=== PATIENT | female | born 1990 | race Caucasian/White ===

== ENCOUNTER 2016-11-10 12:20 | Emergency (ER) | payer MEDICAID ==
[~2016-11-10] VITALS: Ht 162.6 cm; Wt 82.0 kg
[~2016-11-10 12:20] MED LIST: ADVIL
[2016-11-10 12:26] VITALS: BP 116/65
== END 2016-11-10 14:52 | disposition left against medical advice (07) ==
LOC: ER 12:21
DX: M54.9 Dorsalgia, unspecified (principal); Z53.21 Procedure and treatment not carried out due to patient leaving prior to being seen by health care provider

== ENCOUNTER 2019-05-19 07:59 | Emergency (ER) | payer MEDICAID ==
[~2019-05-19] VITALS: Ht 157.5 cm; Wt 87.0 kg
[2019-05-19] MEDS ORDERED: ACETAMINOPHEN 325MG TABLET PO PRN (08:45)
[2019-05-19 09:04] LABS: BASOPHILS % 0.9 % (0.0-2.0); EOSINOPHILS % 2.5 % (0.0-5.0); HEMATOCRIT. 43.8 % (36.0-48.0); HEMOGLOBIN. 14.8 g/dL (12.0-16.0); LYMPHOCYTES % 33.8 % (20.0-50.0); MEAN CORPUSCULAR HEMOGLOBIN 28.6 pg (28.0-32.0); MEAN CORPUSCULAR VOLUME 84.5 fL (81.0-99.0); MEAN PLATELET VOLUME 8.4 fl (7.4-10.4); MONOCYTES % 6.5 % (2.0-8.0); NEUTROPHILS % 56.3 % (40.0-76.0); PLATELET 248 x1000/uL (130-400); RED BLOOD CELL COUNT 5.18 mill/uL (4.2-5.4); RED CELL DISTRIBUTION WIDTH 12.9 % (11.6-14.6)
[2019-05-19 09:11] LABS: CHLORIDE 107 mEq/L (98-107)
[2019-05-19 09:22] LABS: B-HCG QUANTITATIVE < 1 mIU/mL (<3)
[2019-05-19 10:34] LABS: CLARITY URINE CLEAR (CLEAR); COLOR URINE YELLOW (YELLOW); KETONES URINE NEGATIVE (NEGATIVE); LEUKOCYTE ESTERASE URINE 1+ (NEGATIVE); NITRITE URINE NEGATIVE (NEGATIVE); OCCULT BLOOD URINE NEGATIVE (NEGATIVE); PH URINE 5.5 (4.5-8.0); PROTEIN URINE NEGATIVE (NEGATIVE); SPECIFIC GRAVITY URINE 1.014 (1.005-1.030); UROBILINOGEN URINE 0.2 E.U./dL (0.2-1.0)
[2019-05-19 10:50] VITALS: BP 116/65
== END 2019-05-19 12:01 | disposition home or self-care (01) ==
LOC: ER 08:08
DX: N91.2 Amenorrhea, unspecified (principal); R10.30 Lower abdominal pain, unspecified
CPT/HCPCS: 36415; 71045; 76830; 76856; 81003; 81025; 84702; 93005; 99284

== ENCOUNTER 2020-08-30 03:41 | Emergency (ER) | payer MEDICAID ==
[~2020-08-30] VITALS: Ht 165.1 cm; Wt 90.0 kg
[2020-08-30] MEDS ORDERED: KETOROLAC 60MG/2ML VIAL IM STA (05:23)
[2020-08-30 05:38] VITALS: BP 128/73
== END 2020-08-30 07:11 | disposition home or self-care (01) ==
LOC: ER 03:54
DX: M54.6 Pain in thoracic spine (principal); R05 Cough; M79.10 Myalgia, unspecified site
CPT/HCPCS: 71045; 93005; 96372; 99283; J1885

== ENCOUNTER 2021-03-16 01:21 | Emergency (ER) | payer MEDICAID ==
[~2021-03-16] VITALS: Ht 157.5 cm; Wt 97.0 kg
[2021-03-16] MEDS ORDERED: PREDNISONE 20MG TABLET PO STA (04:18)
[2021-03-16] MEDS ORDERED: IPRATROPIUM BROMIDE (0.02%) 0.5MG/2.5ML NEB HHN STA (04:18)
[2021-03-16] MEDS ORDERED: ALBUTEROL (0.083%) 2.5MG/3ML NEB HHN STA (04:18)
[2021-03-16 04:48] LABS: EOSINOPHILS % 12.2 % (0.0-5.0); HEMATOCRIT. 39.5 % (36.0-48.0); HEMOGLOBIN. 13.5 g/dL (12.0-16.0); LYMPHOCYTES % 34.9 % (20.0-50.0); MEAN CORPUSCULAR HEMOGLOBIN 28.5 pg (28.0-32.0); MEAN CORPUSCULAR VOLUME 83.3 fL (81.0-99.0); MEAN PLATELET VOLUME 8.5 fl (7.4-10.4); MONOCYTES % 6.9 % (2.0-8.0); PLATELET 234 x1000/uL (130-400); RED BLOOD CELL COUNT 4.75 mill/uL (4.2-5.4); RED CELL DISTRIBUTION WIDTH 12.5 % (11.6-14.6)
[2021-03-16 04:50] LABS: CHLORIDE 107 mEq/L (98-107)
[2021-03-16] MEDS ORDERED: AMOX-494 MT (06:34)
[2021-03-16] MEDS ORDERED: PRED10TA23 MT (06:34)
[2021-03-16 07:50] VITALS: BP 136/58
== END 2021-03-16 10:36 | disposition home or self-care (01) ==
LOC: ER 01:21
DX: J40 Bronchitis, not specified as acute or chronic (principal)
CPT/HCPCS: 36415; 71045; 80053; 83880; 84484; 85025; 85379; 93005; 94640; 99285; J7512; Z7610

== ENCOUNTER 2022-05-04 03:09 | Emergency (ER) | payer MEDICAID, OTHER ==
[~2022-05-04] VITALS: Ht 157.5 cm; Wt 98.1 kg
[~2022-05-04 03:09] MED LIST changes: +AMOX-494 MT; +PRED10TA23 MT
[2022-05-04 03:15] VITALS: BP 125/64
== END 2022-05-04 03:45 | disposition left against medical advice (07) ==
LOC: ER 03:09
DX: Z53.21 Procedure and treatment not carried out due to patient leaving prior to being seen by health care provider (principal)

== ENCOUNTER 2022-12-20 10:08 | Emergency (ER) | payer MEDICAID, OTHER ==
[~2022-12-20] VITALS: Ht 157.5 cm; Wt 99.0 kg
[2022-12-20 10:45] LABS: BASOPHILS % 0.6 % (0.0-2.0); HEMATOCRIT. 45.4 % (36.0-48.0); HEMOGLOBIN. 15.3 g/dL (12.0-16.0); LYMPHOCYTES % 31.5 % (20.0-50.0); MEAN CORPUSCULAR HEMOGLOBIN 28.8 pg (28.0-32.0); MEAN CORPUSCULAR VOLUME 85.4 fL (81.0-99.0); MEAN PLATELET VOLUME 8.6 fl (7.4-10.4); MONOCYTES % 6.7 % (2.0-8.0); NEUTROPHILS % 56.2 % (40.0-76.0); PLATELET 288 x1000/uL (130-400); RED BLOOD CELL COUNT 5.31 mill/uL (4.2-5.4); RED CELL DISTRIBUTION WIDTH 12.6 % (11.6-14.6)
[2022-12-20 10:54] LABS: CHLORIDE 107 mEq/L (98-107)
[2022-12-20 12:25] VITALS: BP 118/64
[2022-12-20 13:02] LABS: CLARITY URINE CLEAR (CLEAR); COLOR URINE YELLOW (YELLOW); KETONES URINE NEGATIVE (NEGATIVE); LEUKOCYTE ESTERASE URINE NEGATIVE (NEGATIVE); NITRITE URINE NEGATIVE (NEGATIVE); OCCULT BLOOD URINE NEGATIVE (NEGATIVE); PH URINE 5.5 (4.5-8.0); PROTEIN URINE NEGATIVE (NEGATIVE); SPECIFIC GRAVITY URINE 1.012 (1.005-1.030); UROBILINOGEN URINE 0.2 E.U./dL (0.2-1.0)
[2022-12-20 13:06] LABS: HCG SCREEN NEGATIVE
== END 2022-12-20 13:58 | disposition home or self-care (01) ==
LOC: ER 10:25
DX: N92.6 Irregular menstruation, unspecified (principal); R07.89 Other chest pain; R10.2 Pelvic and perineal pain; I10 Essential (primary) hypertension
CPT/HCPCS: 36415; 71045; 76856; 80053; 81003; 81025; 84443; 84484; 84703; 85025; 93005; 99285; Z7610

== ENCOUNTER 2025-03-07 18:07 | Emergency (ER) | payer OTHER ==
[~2025-03-07] VITALS: Ht 157.5 cm; Wt 105.0 kg
[2025-03-07 18:09] VITALS: O2SAT 97
[2025-03-07 18:11] VITALS: TEMP 36.9; O2SAT 97
[2025-03-07 18:48] LABS: BASOPHILS % 0.8 % (0.0-2.0); EOSINOPHILS % 1.3 % (0.0-5.0); HEMATOCRIT. 40.0 % (36.0-48.0); HEMOGLOBIN. 13.3 g/dL (12.0-16.0); LYMPHOCYTES % 29.6 % (20.0-50.0); MEAN PLATELET VOLUME 8.2 fl (7.4-10.4); MONOCYTES % 5.8 % (2.0-8.0); NEUTROPHILS % 62.5 % (40.0-76.0); PLATELET 361 x1000/uL (130-400); RED BLOOD CELL COUNT 5.08 mill/uL (4.2-5.4); RED CELL DISTRIBUTION WIDTH 14.0 % (11.6-14.6)
[2025-03-07 18:57] LABS: CREATININE 1.1 mg/dL (0.6-1.0); UREA NITROGEN BLOOD 16 mg/dL (9-23)
[2025-03-07 18:58] LABS: TROPONIN I HIGH SENSITIVITY < 4 ng/L (3.0-34)
[2025-03-07 18:59] LABS: ASPARTATE AMINOTRANSFERASE 23 IU/L (<34); BILIRUBIN DIRECT 0.1 mg/dL (<=3.0); BILIRUBIN TOTAL 0.5 mg/dL (0.1-1.0); HCG SCREEN NEGATIVE; PROTEIN TOTAL 8.3 g/dL (6.0-8.3)
[2025-03-07 19:55] VITALS: BP 126/75; PULSE 105; RESP 18
[2025-03-07] MEDS: KETOROLAC 30MG/ML VIAL IM ONE (19:55)
[2025-03-07] MEDS: METHOCARBAMOL 500MG TABLET PO ONE (19:55)
[2025-03-07 20:14] LABS: GLUCOSE URINE NEGATIVE (NEGATIVE); KETONES URINE NEGATIVE (NEGATIVE); LEUKOCYTE ESTERASE URINE 2+ (NEGATIVE); NITRITE URINE NEGATIVE (NEGATIVE); OCCULT BLOOD URINE NEGATIVE (NEGATIVE); PH URINE 7.0 (4.5-8.0); PROTEIN URINE NEGATIVE (NEGATIVE); SPECIFIC GRAVITY URINE 1.022 (1.005-1.030); UROBILINOGEN URINE 0.2 E.U./dL (0.2-1.0)
[2025-03-07 21:00] LABS: CLARITY URINE HAZY (CLEAR); COLOR URINE STRAW (YELLOW)
[2025-03-07 21:01] LABS: RBC URINE NONE SEEN /hpf (0-2); SQUAMOUS EPITHELIAL CELL URINE 2+ /lpf (RARE/1+)
[2025-03-07 21:06] LABS: BACTERIA URINE 1+
[2025-03-07] MEDS ORDERED: LIDO700A30 TP (21:10)
[2025-03-07] MEDS ORDERED: IBUP-2029 MT (21:10)
[2025-03-07] MEDS ORDERED: METH-653 MT (21:10)
== END 2025-03-07 21:32 | disposition home or self-care (01) ==
LOC: ER 18:07
DX: R07.89 Other chest pain (principal); J45.909 Unspecified asthma, uncomplicated; Z79.899 Other long term (current) drug therapy
CPT/HCPCS: 80076; 80048; 81003; 84703; 83690; 85025; 85379; 84484; 36415; 71045; 93005; 96372; 99285; J1885; Z7610

== ENCOUNTER → 2025-03-14 | Emergency (ER) | payer OTHER ==
[~2025-03-14] MED LIST changes: +IBUP-2029 MT; +LIDO700A30 TP; +METH-653 MT
[2025-03-14 03:42] VITALS: PULSE 116; O2SAT 97
== END ==
LOC: ER 05:11
DX: R10.9 Unspecified abdominal pain (principal); Z53.21 Procedure and treatment not carried out due to patient leaving prior to being seen by health care provider